=== PATIENT | female | born 1985 | race Caucasian/White ===

== ENCOUNTER 2016-08-20 10:51 | Emergency (ER) | payer OTHER ==
--- NOTE | ~2016-08-20 | CR181 ---
[facility] A Service of [facility] & [facility] RADIOLOGY TEXT RESULTS PATIENT: MYRA CADENA LOCATION: [place] : 85 UNIT #: [id number] AGE: [address]: Rose Hardy SEX: F ORDER DR: [id number] [facility] [address] [place], [place] [address] [id number] E MR#: [id number] #: [id number] NAME: MYRA CADENA : 1985 SEX: F STUDY DATE/TIME: 08/20/2016 11:21 UNIT: [facility] ROOM: STUDY DESCRIPTION: CR Lumbar Spine 2 or 3 Views Attending Physician: Rose Hardy P.A.-C. Ordering Physician: Rose Hardy P.A.-C. [facility] This report is preliminary unless electronic signature is present EXAM Lumbar spine 3 views 08/20/2016 HISTORY Low back pain for 4 days, injured back lifting her grandmother. 4 days ago. Persistent pain. FINDINGS 3 views of the lumbar spine demonstrate old mild anterior compression deformities involving T10-T12. The compression deformities are unchanged compared with CT scan of the abdomen and pelvis dated 04/20/2016. No acute fracture is seen. There is 5 mm retrolisthesis of L1 on L2 and L3 on L4. There is degenerative change with mild disc space narrowing from L3-4 through L5-S1. Marginal osteophytes are seen throughout the visualized lower thoracic and lumbar spine and there is degenerative change involving the articular facets. 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 Chronic compression deformities involving T10-T12 stable compared with CT scan 04/20/2016. No acute abnormality is seen in the lumbar spine. Dictated by... Raimundo Kang M.D. THIS IS AN ELECTRONICALLY VERIFIED REPORT Raimundo Kang M.D. at 08/22/2016 8:16 AM KRT/bd TD: 08/20/2016 13:51 JOB #: [id number] MEDICAL IMAGING REPORT [facility] A Service of [facility] & [facility] RADIOLOGY TEXT RESULTS PATIENT: MYRA CADENA LOCATION: [facility] : [birth year] UNIT #: [id number] AGE: [address]: Rose Hardy SEX: F ORDER DR: Page 1 of 1 COPY
[~2016-08-20 10:51] MED LIST: ALBUTEROL 0.5ML INH; ALBUTEROL17 GM INH; AMOXICILLIN500 M1 PO; ANTIVERT PO; BIRTH CONTROL PILL PO; DEPO-ESTRADIO5 MG/ML; DEPO-PROVER150 MG/ML INJ; DICLOFENAC PO; ERYC250 MG PO; FLOMAX0.4 M1 PO; KETOPROFEN PO; MEDROL PO; MEDROL4 MG/DOSE- PO; PERCOCET PO; PHENERGAN PO; VICODIN 5/1 TAB 5/50 PO; ZITHROMAX1 G/PKT PO
== END 2016-08-20 12:20 | disposition home or self-care (01) ==
LOC: CFTX 10:51
DX: S39.012A Strain of muscle, fascia and tendon of lower back, initial encounter (principal); D64.9 Anemia, unspecified; F17.210 Nicotine dependence, cigarettes, uncomplicated; X58.XXXA Exposure to other specified factors, initial encounter; Y92.009 Unspecified place in unspecified non-institutional (private) residence as the place of occurrence of the external cause
CPT/HCPCS: 72100; 96372; 99283; J1885